=== PATIENT | female | born 1970 | race Caucasian/White ===

== ENCOUNTER 2018-01-08 10:34 | Outpatient (CLI) | payer BC ==
--- NOTE | 2018-01-08 12:28 | RAD ---
ABDOMEN TWO VIEWS CHEST ONE VIEW: History: 47-year-old male with history of abdominal pain and constipation for one week, R10.84 FINDINGS: No acute intrathoracic disease. Somewhat irregularly shaped 0.7 x 1.3 cm diameter calculus in the low er pole left kidney. No free intraperitoneal air. No evidence of large or small bowel obstruction. Ca lcific density in the left pelvis having more of the appearance of a phlebolith. IMPRESSION: Left lower pole renal calculus. POS: MAHAD
== END 2018-01-08 10:35 | disposition home or self-care (01) ==
LOC: SCSRAD 10:34
PROVIDERS: ATTEND Nurse Practitioner Family
DX: R10.84 Generalized abdominal pain (principal); N20.0 Calculus of kidney
CPT/HCPCS: 74022